=== PATIENT | male | born 1985 | race Caucasian/White ===

== ENCOUNTER 2020-08-02 13:46 | Emergency (ER) | payer OTHER ==
[2020-08-02 15:54] LABS: HEMOGLOBIN 12.1 gm/dl (14.0-17.5); RED BLOOD COUNT 4.51 M/UL (4.20-5.50); WHITE BLOOD COUNT 14.2 K/UL (4.5-11.0)
[2020-08-02 16:27] LABS: BUN/CREATININE RATIO 11 (0-10)
== END 2020-08-02 23:20 | disposition short-term general hospital (02) ==
LOC: ER1 13:46
PROVIDERS: Physician Assistant
DX: M46.47 Discitis, unspecified, lumbosacral region (principal); N39.0 Urinary tract infection, site not specified; Z20.822 Contact with and (suspected) exposure to COVID-19; M86.8X9 Other osteomyelitis, unspecified sites; G06.1 Intraspinal abscess and granuloma; Z90.49 Acquired absence of other specified parts of digestive tract; F17.210 Nicotine dependence, cigarettes, uncomplicated
CPT/HCPCS: 71045; 72132; 72193; 80053; 81001; 82550; 82553; 83605; 83874; 84484; 85025; 86140; 87040; 87077; 87086; 87186; 93005; 96374; 96375; 96376; 99285; J2270; J2543; J3370; J7030; Q9967; U0002